=== PATIENT | female | born 1970 | race Caucasian/White ===

== ENCOUNTER → 2018-07-09 16:52 | Outpatient (CLI) | payer MEDICAID, SELFPAY ==
[2018-07-09 18:56] LABS: Estradiol 152.8 pg/mL; Follicle Stimulating Hormone 11.1 mIU/mL
[2018-07-11 07:08] LABS: DHEA Sulfate 115.1 ug/dL (41.2-243.7)
[2018-07-11 09:41] LABS: Sex Hormone-binding Globulin 177.7 nmol/L (24.6-122.0)
[2018-07-14 11:28] LABS: HPV APTIMA, High Risk Negative (Negative)
== END ==
PROVIDERS: Visit Provider Obstetrics & Gynecology
DX: Z12.4 Encounter for screening for malignant neoplasm of cervix (principal); N95.1 Menopausal and female climacteric states; G47.00 Insomnia, unspecified
CPT/HCPCS: 36415; 82627; 82670; 83001; 84270; 84403; 87624; 88175; 82626; G0145

== ENCOUNTER → 2023-09-17 | Outpatient (CLI) | payer BC, SELFPAY ==
--- NOTE | 2023-09-17 08:35 | NEURO ---
NCS and/or EMG Patient Report Ordering Doctor: MESSI GARCIA DATE OF SERVICE: 09/17/23 Clinical Summary: 53 year old female presenting with complaints of right upper and lower extremity numbness and weakness for the past 2 years. Nerve Conduction Studies Summary: Nerve conduction studies in the right upper and lower extremities were within normal ranges. Needle Examination Summary: Patient had difficulty tolerating the needle examination. Reduced motor unit firing rates were seen in all sampled muscles of the right lower extremity, but especially in the right vastus medialis, peroneus longus, and medial gastrocnemius muscles, which can be seen in the setting of pain intolerance, reduced effort, and/or disorders of central origin. Impression: Patient had difficulty tolerating the needle examination. Reduced motor unit firing rates were seen in all sampled muscles of the right lower extremity, but especially in the right vastus medialis, peroneus longus, and medial gastrocnemius muscles, which can be seen in the setting of pain intolerance, reduced effort, and/or disorders of central origin. There is no definite electrodiagnostic evidence of a large-fiber peripheral polyneuropathy. There is no definite electrodiagnostic evidence of a nerve entrapment or radiculopathy in the right upper/lower extremities. Multi Select Codes Neurology Neurology Interp Codes: 52882-73 Musc test done w/n test comp (interp) (2) and 72271-38 Nrv cndj test 11-12 studies (interp)
== END | disposition home or self-care (01) ==
PROVIDERS: Referring Provider Psychiatry & Neurology Neurology; Visit Provider Psychiatry & Neurology Neurology
DX: R20.0 Anesthesia of skin (principal)
CPT/HCPCS: 95886; 95912